=== PATIENT | male | born 1940 | race Caucasian/White ===

== ENCOUNTER 2018-05-11 11:47 | Emergency (ER) | payer MEDICARE, OTHER, SELFPAY ==
--- NOTE | 2018-05-11 11:49 | CT_ITS ---
STUDY: CT BRAIN WITHOUT CONTRAST REASON FOR EXAM: Male, 77 years old. History of intracranial bleed seen on the sinus CT scan. History of hypertension. RADIATION DOSAGE (If Supplied By Facility): CTDIvol = ( 44.99 ) mGy, DLP = ( 829.85 ) mGycm TECHNIQUE: Transaxial CT imaging of the brain was performed without administration of intravenous contrast material. Individualized dose optimization techniques were used for this CT. COMPARISON: None. FINDINGS: Normal soft tissue structures. Normal calvarium. There is mild cerebral atrophy with widening of the extra-axial spaces and ventricular dilatation. There is a 1.2 cm x 3.3 cm hematoma in the medial aspect of the left posterior occipital lobe. Minimal surrounding edema. No significant mass effect is seen. Normal basal ganglia and thalami. Normal brainstem. Normal cerebellum. There is no intracranial hemorrhage. There are no findings of an acute ischemic infarction. Normal visualized paranasal sinuses. CT/Brain/Head without Contrast IMPRESSION: 1.2 cm x 3.3 cm intracerebral hematoma in the posterior medial aspect of the left occipital lobe. Electronically Signed: Chas Barr MD at 12:29 EST , Service support ,
--- NOTE | 2018-05-11 11:49 | EKG12_ITS ---
Test Reason : NEURO Blood Pressure : / mmHG Vent. Rate : 061 BPM Atrial Rate : 061 BPM P-R Int : 178 ms QRS Dur : 108 ms QT Int : 418 ms P-R-T Axes : 045 054 045 degrees QTc Int : 420 ms Normal sinus rhythm Incomplete right bundle branch block Borderline ECG Confirmed by LAURO NIETO, LONNY ([id number]), city editor XOCHILT GREWAL ([id number]) on 05/13/2018 1:24:54 PM Referred By: VALENCIA Confirmed By:LONNY RESTREPO MD
[2018-05-11 11:53] VITALS: BP 160/62; PULSE 61; RESP 22; TEMP 36.6; O2SAT 92; BMI 39.4
--- NOTE | 2018-05-11 12:29 | ED.VISSUMM ---
- ER Visit Summary Date of Service: 05/11/18 Chief Complaint: Intracranial hemorrhage History of Present Illness: The patient is a 77 M with history of type 2 diabetes, hypertension and hypercholesterolemia had an outpatient CT of the sinuses for intermittent headache and presumed sinus problems. I was contacted by radiologist from [facility] that patient had an intracranial bleed he believes in the left parietal area. He states study is limited since the x-ray was a sinus film. He denies trouble with speech or swallowing. He denies paresthesia, anesthesia motor weakness. He denies cardiac respiratory symptoms. He denies nausea or vomiting. He is on no anticoagulant. Only antiplatelet medicine is aspirin. Physical Examination: Blood pressure 160/62, heart rate 61, respiratory 22, temperature 97.9 with a pulse ox of 92% on room air. BMI is 39.5. Pupils equal round reactive paradoxic muscle intact. Sclerae anicteric. There is no papilledema. TMs normal. Nares patent. Posterior pharynx without erythema XA. Uvula midline. Trachea midline. No carotid bruit. Heart is regular without murmur, gallop or rub. Lungs good auscultation. Abdomen soft nontender. He is alert and oriented x3. Motor is 5/5. Incisions intact. DTRs are 1-2+ upper lower extremity with no clonus or Babinski sign. Cranial 2 through 12 intact. Finger-nose to finger was performed adequately. Test Results: CT of the head reviewed by me and reveals an intracranial bleed left side occipital parietal area. It appears on 3 images axial view and 10 images coronal view. Emergency Department Course and Treatment: CBC, basic metabolic panel coags were obtained. CT of the head was ordered emergently. Treatment Plan: Patient and his prefer to stay as close as possible. [facility] was contacted since he is at [facility] patient. They have no beds. He requested [facility]. [facility] was contacted and there is no beds available and there is no beds potential available for greater than 24 hours. Will contact neurosurgeon at [facility] since there is a small bleed and related to hypertension in all likelihood since there is no history of trauma. [facility] was contacted. Patient was accepted by Dr. Cornelius. He is to be taken to the emergency department. Disposition: Transfer to appropriate facility with neurosurgical backup Impression: Left occipital parietal intracranial hemorrhage secondary to hypertension History of type 2 diabetes History of hypercholesterolemia This note was generated with [employer] dictation software. It may contain incorrect words, spelling, and punctuation that were not noted in review of the chart prior to signing ED Disposition - Plan for ED Patient: Referrals: Shayla Hoffmann NP-C [NON-STAFF] -
--- NOTE | 2018-05-11 12:34 | ED.DCSUM_ITS ---
- ER Visit Summary Date of Service: 05/11/18 Chief Complaint: Intracranial hemorrhage History of Present Illness: The patient is a 77 M with history of type 2 diabetes, hypertension and hypercholesterolemia had an outpatient CT of the sinuses for intermittent headache and presumed sinus problems. I was contacted by radiologist from [facility] that patient had an intracranial bleed he believes in the left parietal area. He states study is limited since the x-ray was a sinus film. He denies trouble with speech or swallowing. He denies paresthesia, anesthesia motor weakness. He denies cardiac respiratory symptoms. He denies nausea or vomiting. He is on no anticoagulant. Only antiplatelet medicine is aspirin. Physical Examination: Blood pressure 160/62, heart rate 61, respiratory 22, temperature 97.9 with a pulse ox of 92% on room air. BMI is 39.5. Pupils equal round reactive paradoxic muscle intact. Sclerae anicteric. There is no papilledema. TMs normal. Nares patent. Posterior pharynx without erythema XA. Uvula midline. Trachea midline. No carotid bruit. Heart is regular without murmur, gallop or rub. Lungs good auscultation. Abdomen soft nontender. He is alert and oriented x3. Motor is 5/5. Incisions intact. DTRs are 1-2+ upper lower extremity with no clonus or Babinski sign. Cranial 2 through 12 intact. Finger-nose to finger was performed adequately. Test Results: CT of the head reviewed by me and reveals an intracranial bleed left side occipital parietal area. It appears on 3 images axial view and 10 images coronal view. Emergency Department Course and Treatment: CBC, basic metabolic panel coags were obtained. CT of the head was ordered emergently. Treatment Plan: Patient and his prefer to stay as close as possible. [facility] was contacted since he is at [facility] patient. They have no beds. He requested [facility]. [facility] was contacted and there is no beds available and there is no beds potential available for greater than 24 hours. Will contact neurosurgeon at [facility] since there is a small bleed and related to hypertension in all likelihood since there is no history of trauma. [facility] was contacted. Patient was accepted by Dr. Cornelius. He is to be taken to the emergency department. Disposition: Transfer to appropriate facility with neurosurgical backup Impression: Left occipital parietal intracranial hemorrhage secondary to hypertension History of type 2 diabetes History of hypercholesterolemia This note was generated with [employer] dictation software. It may contain incorrect words, spelling, and punctuation that were not noted in review of the chart prior to signing ED Disposition - Plan for ED Patient: Referrals: Shayla Hoffmann NP-C [NON-STAFF] -
[2018-05-11 12:37] LABS: Absolute Lymphocyte Count 1.04 X10^3/ul (0.83-4.51); Basophil# 0.04 X10^3/uL; Basophil% 0.5 % (0-1); Eosinophil# 0.09 X10^3/uL; Eosinophils% 1.1 % (0-5); Hemoglobin 13.1 g/dl (13.0-16.5); Lymphocyte # 1.04 X10^3/ul (4.0); Lymphocyte % 13.2 % (19-41); Mean Corp Hgb Conc 32.8 g/gl (32-36); Mean Corpuscular Hgb 29.4 pg (27.0-32.0); Mean Corpuscular Volume 89.9 fL (80-94); Mean Platelet Vol. 10.1 fl (6.2-12.0); Monocyte# 0.73 X10^3/uL; Monocyte% 9.3 % (0-10); Neutrophil # 5.95 X10^3/uL (2.7-7.7); Neutrophil % 75.8 % (47-70); POSITIVE COUNT NO; POSITIVE DIFFERENTIAL NO; POSITIVE MORPHOLOGY NO; Platelet Count 221 K/mm3 (150-450); RBC Distribution Width CV 14.1 % (11.6-14.6); RBC Distribution Width SD 45.7 fl (35.1-43.9); Red Blood Count 4.45 M/mm3 (4.6-6.2); White Blood Count 7.9 K/mm3 (4.4-11.0)
[2018-05-11 12:44] LABS: Prothrombin Time (Protime)PT. 13.4 SECONDS (11.7-14.9)
[2018-05-11 12:45] LABS: Partial Thromboplast Time 32.2 Seconds (24.1-36.2)
[2018-05-11 12:53] LABS: Anion Gap 9 (5-15); BUN 19 mg/dL (7-18); BUN/Creat Ratio 18.4 RATIO (10-20); Calcium,Total 8.8 mg/dL (8.5-10.1); Chloride 104 mmol/L (98-107); Creatinine, Serum 1.03 mg/dL (0.70-1.30); EST Glomerular Filtration Rate 75 mL/min (>60); Est Glom Filt Rate - Afr Amer 90 mL/min (>60); Estimated Creatinine Clearance 59.03 ml/min; Glucose 163 mg/dL (74-106); Potassium 3.7 mmol/L (3.5-5.1); Sodium Level 141 mmol/L (136-145)
[2018-05-11 13:04] VITALS: BP 165/74; PULSE 60; RESP 27; O2SAT 95
[2018-05-11 14:39] VITALS: BP 173/90
--- NOTE | 2018-05-11 15:04 | CHAPLAIN ---
Type of Pastoral Visit _x__ Initial Visit ___ Follow-up Visit ___ On-call Visit ___ General Patient Visit ___ Spiritual Assessment ___ Family Conference ___ Bereavement ___ Rapid Response ___ Code Blue ___ Other (describe below) Pastoral Care Referral From _x__ Patient ___ Family _x__ Nurse ___ Physician ___ Wig Comber ___ Highway Commissioner ___ Other (describe below) Sacrament/Intervention _x__ Active listening ___ Anointing ___ Evangelical ___ Bereavement ___ Communion ___ Porsche exploration ___ _x__ Life review _x__ Prayer ___ Reconciliation ___ Sacrament of Sick _x__ Supportive presence ___ Wedding ___ Other (describe below) Pastoral Comments
== END 2018-05-11 14:38 | disposition short-term general hospital (02) ==
LOC: ED 12:42
PROVIDERS: Emergency Provider Emergency Medicine; Family Provider Family Medicine; PCP Family Medicine
DX: I62.9 Nontraumatic intracranial hemorrhage, unspecified (principal); I10 Essential (primary) hypertension; E11.9 Type 2 diabetes mellitus without complications; E78.00 Pure hypercholesterolemia, unspecified; Z85.46 Personal history of malignant neoplasm of prostate
CPT/HCPCS: 70450; 80048; 85025; 85610; 85730; 93005; 96374; 99285; A4216

== ENCOUNTER → 2019-04-04 16:33 | Outpatient (CLI) | payer MEDICARE, OTHER, SELFPAY ==
[2019-04-04 17:06] LABS: D-Dimer Quantitative (DVT/PE) 0.44 FEU/ug/m (0.27-0.49)
== END ==
PROVIDERS: Family Provider Family Medicine; PCP Family Medicine; Referring Provider Family Medicine; Visit Provider Family Medicine
DX: R06.02 Shortness of breath (principal)
CPT/HCPCS: 85379

== ENCOUNTER → 2019-11-01 20:00 | Outpatient (CLI) | payer MEDICARE, OTHER, SELFPAY | PROVIDERS: PCP Family Medicine; Referring Provider Family Medicine; Visit Provider Family Medicine | DX: G47.33 Obstructive sleep apnea (adult) (pediatric) (principal) | CPT/HCPCS: 95811 ==

== ENCOUNTER 2019-11-10 00:18 | Emergency (ER) | payer MEDICARE, OTHER, SELFPAY ==
[2019-11-10 00:22] VITALS: BP 135/58; PULSE 61; RESP 24; TEMP 36.7; O2SAT 89; BMI 45.3
--- NOTE | 2019-11-10 00:40 | ED.DCSUM_ITS ---
History of Present Illness Chief Complaint: GI Bleed Informant: Patient Narrative: he stated he had 3 episodes of active bleeding today. The first 1 was at 4 AM and then two in the afternoon and evening he noticed bright red blood per rectum. He has been constipated lately and having hard stool. He is unsure if he injured 1 of his internal hemorrhoids. He had an internal hemorrhoid surgery [address] Toussaint. He did not have any bleeding postoperative. He has had bleeding with hemorrhoids in the remote past. He stated he had 5 polyps removed as well. Denies any abdominal pain. He is not on blood thinners. He had upper GI scope per patient that was normal. Past Medical History - Allergies and Home Meds Allergies/Adverse Reactions: Allergies atorvastatin [From Lipitor] Adverse Reaction (Verified 11/10/19 00:47) muscle pain muscle pain pravastatin Adverse Reaction (Verified 11/10/19 00:47) muscle pain muscle pain simvastatin Adverse Reaction (Verified 11/10/19 00:47) Pain in joints muscle pain sitagliptin [From Januvia] Adverse Reaction (Verified 11/10/19 00:47) muscle aches muscle and join aches Primary Care Physician: Thony Ruiz MD [Primary Care Provider] - Prior records reviewed: Yes Past Medical History: - - Reviewed Surgical History: - - Reviewed Lives: With Family Smoking Status: Current every day smoker Alcohol: None Drugs: None Review of Systems General: Denies: Chills, Fever, Sweats Eyes: Denies: Visual changes - bilaterally, Diplopia ENT: Denies: Rhinorrhea, Sore throat Cardiovascular: Denies: Chest pain, Palpitations Respiratory: Denies: Dyspnea, Cough, Dyspnea on exertion Gastrointestinal: Reports: Hematochezia. Denies: Abdominal pain, Nausea, Vomiting, Diarrhea, Melena Genitourinary: Denies: Dysuria, Hematuria, Frequency Musculoskeletal: Denies: Back pain, Extremity Pain Skin: Denies: Rash, Wounds Neurological: Denies: Headache, Weakness, Numbness Physical Exam Vital Signs/Narrative: Vital Signs Temp Pulse Resp BP Pulse Ox 11/10/19 00:22 98.0 F 61 24 H 135/58 H 89 General: Well nourished, Well developed, No Acute Distress Head: Normocephalic, Atraumatic Eyes: Perrl, EOMI ENT: Moist mucous membranes, No rhinorrhea Neck: Supple, Nontender Cardiovascular: Regular rate, Regular rhythm, No murmurs Respiratory: No distress, CTA bilaterally, Chest nontender Abdomen: Soft, Nontender, Nondistended, Normal bowel sounds Rectal: Nontender, - - Has a scant amount of bright red blood on my finger on exam. I cannot appreciate any hemorrhoids externally or internally felt Back: Nontender, Normal Inspection Extremities: Nontender, No edema Skin: Normal color, No rash Neurological: Alert, Oriented x3, Cranial nerves II-XII grossly intact, Normal Strength, Normal Sensation Psychological: Normal affect, Normal Mood Diagnostic/Tx/Re-eval - Medical Decision Making Patient resting comfortably without complaint. Lab work obtained. Patient remains comfortable. Patient has a hemoglobin 11.1 down from 13.1 a year and a half ago. Creatinine is 1.5. Patient does not have any complaints at this time. He said no further GI bleeding. I suspect that he has some mild bleeding from his hemorrhoid surgery versus a polyp site. He is nontoxic. Discussed with on-call [facility]. She and I feel the patient can follow-up as an outpatient with Dr. Toussaint. Patient is in agreement with this. He will continue to keep his stool soft stool softeners ED Disposition - Plan for ED Patient: Disposition: Home or Assisted Living Diagnosis: Postoperative haemorrhage Instructions: ED Hematochezia Stable Referrals: Christopher Deshpande MD [STAFF PHYSICIAN] -
[2019-11-10 01:07] LABS: Absolute Lymphocyte Count 0.88 X10^3/uL (0.83-4.51); Absolute Neutrophil Count 5.6 X10^3/uL (2.0-7.7); Basophil# 0.03 X10^3/uL; Basophil% 0.4 % (0-1); Eosinophil# 0.21 X10^3/uL; Eosinophils% 2.8 % (0-5); Hematocrit 35.2 % (40-54); Hemoglobin 11.1 g/dL (13.0-16.5); Lymphocyte # 0.88 X10^3/ul (4.0); Lymphocyte % 11.6 % (19-41); Mean Corp Hgb Conc 31.5 g/dL (32-36); Mean Corpuscular Hgb 28.7 pg (27.0-32.0); Mean Platelet Vol. 10.6 fl (6.2-12.0); Monocyte# 0.87 X10^3/uL; Monocyte% 11.5 % (0-10); NRBC Flagged by Analyzer 0 % (0-5); Neutrophil # 5.56 X10^3/uL (2.7-7.7); Neutrophil % 73.3 % (47-70); Platelet Count 202 K/mm3 (150-450); RBC Distribution Width CV 13.2 % (11.6-14.6); RBC Distribution Width SD 43.4 fl (35.1-43.9); Red Blood Count 3.87 M/mm3 (4.6-6.2); White Blood Count 7.6 K/mm3 (4.4-11.0)
[2019-11-10 01:22] LABS: Anion Gap 3 (5-15); BUN 35 mg/dL (7-18); BUN/Creat Ratio 23.3 RATIO (10-20); Calcium,Total 8.7 mg/dL (8.5-10.1); Chloride 105 mmol/L (98-107); EST Glomerular Filtration Rate 48 mL/min (>60); Est Glom Filt Rate - Afr Amer 58 mL/min (>60); Estimated Creatinine Clearance 37.22 ml/min; Glucose 147 mg/dL (74-106); Potassium 4.3 mmol/L (3.5-5.1); Sodium Level 137 mmol/L (136-145)
[2019-11-10 01:28] LABS: International Normalized Ratio 1.1; Partial Thromboplast Time 32.4 Seconds (24.1-36.2); Prothrombin Time (Protime)PT. 13.3 SECONDS (11.7-14.9)
[2019-11-10 02:18] VITALS: BP 166/60; PULSE 64; RESP 28; O2SAT 94
== END 2019-11-10 02:25 | disposition home or self-care (01) ==
PROVIDERS: Emergency Provider Emergency Medicine; PCP Family Medicine
DX: K91.840 Postprocedural hemorrhage of a digestive system organ or structure following a digestive system procedure (principal); F17.200 Nicotine dependence, unspecified, uncomplicated
CPT/HCPCS: 80048; 85025; 85610; 85730; 99284; A4216

== ENCOUNTER 2019-12-15 14:53 | Emergency (ER) | payer MEDICARE, OTHER, SELFPAY ==
[2019-12-15 14:55] VITALS: BP 161/72; PULSE 61; RESP 16; TEMP 36.8; O2SAT 95; BMI 44.9
--- NOTE | 2019-12-15 15:22 | CT_ITS ---
STUDY: CT ABDOMEN AND PELVIS WITH CONTRAST REASON FOR EXAM: Male, 78 years old. DIFFUSE ABD PAIN, BLOATING RADIATION DOSAGE (If Supplied By Facility): CTDIvol = ( 23.55 ) mGy, DLP = ( 1295.39 ) mGycm TECHNIQUE: Transaxial images were obtained from the dome of the diaphragm to the symphysis pubis without oral contrast. Oral and amp; IV Gastrografin and amp; 100mL Isovue-300 was administered. Sagittal and coronal images were reconstructed. Individualized dose optimization techniques were used for this CT. COMPARISON: None. FINDINGS: There is diffuse interstitial thickening of the lower lobes.. Heart is enlarged. The liver is enlarged and diffusely fatty infiltrated without mass or bile duct dilatation. Distended gallbladder without calcified stones or pericholecystic edema possibly physiologic. If concern for gallbladder disease ultrasound recommended. Normal spleen. Normal pancreas. Normal bilateral adrenal glands. No evidence for renal obstruction or ureteral calculus. Tiny right renal cyst.. Normal visualized stomach. Normal small intestine. Minor diverticular changes of the descending colon without evidence for acute diverticulitis.. Nonvisualization of the appendix which may be on the basis of prior appendectomy. Atherosclerotic changes of the aorta without evidence for aneurysm. Normal inferior vena cava. Normal retroperitoneum. Incompletely distended thick-walled bladder likely of no significance Small fat-containing periumbilical hernia.. Small bilateral fat-containing inguinal hernias Lumbar spine demonstrates moderate spondylosis. CT/Abdomen/Pelvis WITH Contrast IMPRESSION: Distended gallbladder without stones or pericholecystic edema possibly physiologic however if concern for gallbladder disease ultrasound recommended. Minor diverticular changes of the descending colon without evidence for acute diverticulitis. No evidence for small bowel obstruction. Other findings as above Electronically Signed: Shay Sue MD at 17:49 EDT , Service support ,
--- NOTE | 2019-12-15 15:22 | EKG12_ITS ---
Test Reason : Blood Pressure : / mmHG Vent. Rate : 064 BPM Atrial Rate : 064 BPM P-R Int : 220 ms QRS Dur : 110 ms QT Int : 424 ms P-R-T Axes : 040 047 059 degrees QTc Int : 437 ms Sinus rhythm with 1st degree A-V block Otherwise normal ECG Confirmed by CORINNE NIETO, TOSHA ([id number]), script editor AMARILIS DYE ([id number]) on 12/22/2019 12:50:38 P M Referred By: BENIGNO Confirmed By:MANISH SUN MD
--- NOTE | 2019-12-15 15:24 | ED.DCSUM_ITS ---
History of Present Illness Chief Complaint: Abd Pain Informant: Patient Onset: Today Context: Gradual Onset Timing: Waxes and wanes Current Severity: Moderate Maximum Severity: Severe Narrative: Patient presents secondary to generalized abdominal pain. He states pain started around 10 AM this morning. He had had some diarrhea when he first got up this morning but was able to tolerate breakfast without difficulty. Around 10 AM he started getting generalized abdominal pain. He denies vomiting or any further episodes of diarrhea. states he does have a history of stomach problems. He recently had an EGD and colonoscopy. He had some polyps removed and internal hemorrhoids treated. - Past Medical History (1) Hypertension Status: Chronic (2) High cholesterol Status: Chronic (3) COPD (chronic obstructive pulmonary disease) Status: Chronic (4) Diabetes Status: Chronic (5) TIA (transient ischemic attack) Status: Chronic (6) Prostate cancer Status: Chronic Past Medical History - Allergies and Home Meds Allergies/Adverse Reactions: Allergies atorvastatin [From Lipitor] Adverse Reaction (Verified 12/15/19 14:54) muscle pain muscle pain pravastatin Adverse Reaction (Verified 12/15/19 14:54) muscle pain muscle pain simvastatin Adverse Reaction (Verified 12/15/19 14:54) Pain in joints muscle pain sitagliptin [From Januvia] Adverse Reaction (Verified 12/15/19 14:54) muscle aches muscle and join aches Primary Care Physician: Thony Ruiz MD [Primary Care Provider] - Prior records reviewed: Yes Surgical History: - - Reviewed Lives: Spouse/ Significant Other Smoking Status: Former smoker Review of Systems General: Denies: Chills, Fever Eyes: Denies: Visual changes - bilaterally ENT: Denies: Bilateral ear pain Cardiovascular: Denies: Chest pain Respiratory: Denies: Dyspnea, Cough Gastrointestinal: Reports: Abdominal pain, Diarrhea. Denies: Vomiting Genitourinary: Reports: Frequency. Denies: Dysuria Musculoskeletal: Denies: Swelling, Extremity Pain Hematologic: Denies: Easy bruising, Easy bleeding Allergy: Denies: Uticaria Physical Exam Vital Signs/Narrative: Vital Signs Temp Pulse Resp BP Pulse Ox 12/15/19 14:55 98.2 F 61 16 161/72 H 95 Inital Vital Signs reviewed: Yes General: Well nourished, Well developed Head: Normocephalic ENT: Moist mucous membranes Neck: Supple Cardiovascular: Irregular Respiratory: No distress, CTA bilaterally Abdomen: Soft, Normal bowel sounds, Tender - Mild diffuse tenderness palpation.. Negative for: Guarding, Rebound tenderness Extremities: Nontender Skin: Normal color Neurological: Alert, Oriented x3 Psychological: Normal affect Diagnostic/Tx/Re-eval Impressions Abdomen/Pelvis CT 12/15/19 15:22 IMPRESSION: Distended gallbladder without stones or pericholecystic edema possibly physiologic however if concern for gallbladder disease ultrasound recommended. Minor diverticular changes of the descending colon without evidence for acute diverticulitis. No evidence for small bowel obstruction. Other findings as above Electronically Signed: Shay Sue MD at 17:49 EDT , Service support , 12/15/19 15:22 Abdomen/Pelvis WITH Contrast [CT] Stat Laboratory Results 12/15/19 12/15/19 12/15/19 11:20 11:20 16:00 WBC 9.0 RBC 3.56 L Hgb 10.0 L Hct 31.8 L MCV 89.3 MCH 28.1 MCHC 31.4 L RDW Std Deviation 42.8 RDW Coeff of [place] 13.1 Plt Count 251 MPV 10.9 Immature Gran % (Auto) 0.400 Neut % (Auto) 83.2 H Lymph % (Auto) 7.3 L [place] % (Auto) 7.9 Eos % (Auto) 1.0 Baso % (Auto) 0.2 Absolute Neuts (auto) 7.5 Absolute Lymphs (auto) 0.65 L Nucleated RBC % 0 Sodium 136 Potassium 4.3 Chloride 104 Carbon Dioxide 26.0 Anion Gap 6 BUN 24 H Creatinine 1.31 H Estim Creat Clear Calc 42.61 Est GFR (MDRD) Af Amer 68 Est GFR (MDRD) Non-Af 56 L BUN/Creatinine Ratio 18.3 Glucose 114 H Lactic Acid 0.6 Calcium 8.8 Total Bilirubin 0.20 Direct Bilirubin 0.10 AST 14 L ALT 18 Alkaline Phosphatase 39 L Total Protein 6.8 Albumin 3.4 Globulin 3.4 Lipase 77 Urine Color Urine Clarity Urine pH Ur Specific [place] Urine Protein Urine Glucose (UA) Urine Ketones Urine Occult Blood Urine Nitrite Urine Bilirubin Urine Urobilinogen Ur Leukocyte Esterase Urine RBC Urine WBC Ur Squamous Epith Cells Urine Bacteria Urine Mucus 12/15/19 17:10 WBC RBC Hgb Hct MCV MCH MCHC RDW Std Deviation RDW Coeff of [place] Plt Count MPV Immature Gran % (Auto) Neut % (Auto) Lymph % (Auto) [place] % (Auto) Eos % (Auto) Baso % (Auto) Absolute Neuts (auto) Absolute Lymphs (auto) Nucleated RBC % Sodium Potassium Chloride Carbon Dioxide Anion Gap BUN Creatinine Estim Creat Clear Calc Est GFR (MDRD) Af Amer Est GFR (MDRD) Non-Af BUN/Creatinine Ratio Glucose Lactic Acid Calcium Total Bilirubin Direct Bilirubin AST ALT Alkaline Phosphatase Total Protein Albumin Globulin Lipase Urine Color Yellow Urine Clarity Sl. Cloudy Urine pH 7.0 Ur Specific [place] 1.010 Urine Protein 100 H Urine Glucose (UA) Normal Urine Ketones Negative Urine Occult Blood Negative Urine Nitrite Negative Urine Bilirubin Negative Urine Urobilinogen Normal Ur Leukocyte Esterase Negative Urine RBC 0 SEEN Urine WBC 0 SEEN Ur Squamous Epith Cells 0-5 SEEN Urine Bacteria 0 SEEN Urine Mucus 0 SEEN - EKG Initial EKG Interpretation: Sinus Rhythm - Sinus at 64 with a first-degree AV block. No acute ischemia. - Medical Decision Making Patient was given morphine and Zofran for pain on arrival. Blood work and CT scan are largely unremarkable. There is concern for his gallbladder being distended and ultrasound of the gallbladder has been recommended. This was discussed with the patient and at bedside. Patient be sent for ultrasound and this report will be signed out to oncoming physician for final disposition. ED Disposition - Plan for ED Patient: Referrals: Thony Ruiz MD [Primary Care Provider] -
[2019-12-15] MEDS: Morphine 4 MG/ML Syringe IV ×2 (15:40→19:55)
[2019-12-15] MEDS: Ondansetron 4 MG/2 ML Vial IV (15:40)
[2019-12-15 16:14] VITALS: PULSE 66; RESP 22; O2SAT 94
[2019-12-15] MEDS: 0.9% Normal Saline 1,000 ML 150 ML IV (16:14)
[2019-12-15 16:20] LABS: Absolute Lymphocyte Count 0.65 X10^3/uL (0.83-4.51); Absolute Neutrophil Count 7.5 X10^3/uL (2.0-7.7); Basophil# 0.02 X10^3/uL; Basophil% 0.2 % (0-1); Eosinophil# 0.09 X10^3/uL; Hematocrit 31.8 % (40-54); Lymphocyte # 0.65 X10^3/ul (4.0); Lymphocyte % 7.3 % (19-41); Mean Corp Hgb Conc 31.4 g/dL (32-36); Mean Corpuscular Hgb 28.1 pg (27.0-32.0); Mean Corpuscular Volume 89.3 fL (80-94); Mean Platelet Vol. 10.9 fl (6.2-12.0); Monocyte# 0.71 X10^3/uL; Monocyte% 7.9 % (0-10); NRBC Flagged by Analyzer 0 % (0-5); Neutrophil # 7.45 X10^3/uL (2.7-7.7); Neutrophil % 83.2 % (47-70); Platelet Count 251 K/mm3 (150-450); RBC Distribution Width CV 13.1 % (11.6-14.6); RBC Distribution Width SD 42.8 fl (35.1-43.9); Red Blood Count 3.56 M/mm3 (4.6-6.2)
[2019-12-15 16:29] LABS: AST(SGOT) 14 U/L (15-37); Alanine Aminotransfer ALT/SGPT 18 U/L (16-61); Albumin, Serum 3.4 g/dL (3.2-5.0); Alkaline Phosphatase 39 U/L (45-117); Anion Gap 6 (5-15); BUN 24 mg/dL (7-18); BUN/Creat Ratio 18.3 RATIO (10-20); Calcium,Total 8.8 mg/dL (8.5-10.1); Chloride 104 mmol/L (98-107); Creatinine, Serum 1.31 mg/dL (0.70-1.30); EST Glomerular Filtration Rate 56 mL/min (>60); Est Glom Filt Rate - Afr Amer 68 mL/min (>60); Estimated Creatinine Clearance 42.61 ml/min; Globulin 3.4 g/dL (2.2-4.2); Glucose 114 mg/dL (74-106); Lipase 77 U/L (73-393); Potassium 4.3 mmol/L (3.5-5.1); Protein, Total 6.8 g/dL (6.4-8.2); Sodium Level 136 mmol/L (136-145)
[2019-12-15 16:35] LABS: Lactic Acid 0.6 mmol/L (0.4-1.9)
[2019-12-15 17:18] LABS: Bacteria 0 SEEN /hpf (None Seen); Mucous, Urine 0 SEEN /hpf (<or=2+); Red Blood Cells-Urine 0 SEEN /hpf (0-5); White Blood Cells 0 SEEN /hpf (0-5)
[2019-12-15 17:21] LABS: Color, Urine Yellow (Yellow); Glucose, Dipstick Normal (Normal); Ketone-Dipstick Negative (Negative); Leukocyte Esterase-Dipstick Negative /ul (Negative); Nitrite-Dipstick Negative (Negative); Occult Blood-Urine Negative /ul (Negative); Protein-Dipstick 100 mg/dl (Negative); Urine Bilirubin Dipstick Negative (Negative); Urine Clarity Sl. Cloudy (Clear); Urine Urobilinogen Normal (Normal)
[2019-12-15 17:49] LABS: Squamous Epithelial Cells - UA 0-5 SEEN /hpf (0-5)
--- NOTE | 2019-12-15 18:21 | US_ITS ---
STUDY: ABDOMINAL ULTRASOUND - RIGHT UPPER QUADRANT REASON FOR VISIT: Male, 78 years old ABD PAIN TECHNIQUE: Ultrasound evaluation of the right upper quadrant was performed with real-time and static trent-scale imaging. TECHNICAL QUALITY: Adequate. COMPARISON: CT of the abdomen 12/15/2019 FINDINGS: Liver: The liver measures 23.1 cm. There is diffusely increased echogenicity of the liver. The bile ducts are within normal limits. There is hepatic color flow. The direction of portal flow is hepatopetal. There is no demonstrated mass lesion. Gallbladder: Normal distended gallbladder. The gallbladder wall measures 3 mm. There is a negative sonographic Valverde''s sign. There is no pericholecystic fluid. There are no gallstones. Common Bile Duct (C.B.D.): The common bile duct measures 3 mm. Pancreas: Not visualized due to bowel gas producing artifact.. Right Kidney: Normal size of the right kidney. The right kidney measures 12.4 x 6.2 x 7.3 cm. Normal renal cortex. The right cortex measures 2.3 cm. There is a cyst measuring 2 x 2 x 1.5 cm. There is no right hydronephrosis. US/Abdomen Limited IMPRESSION: Enlarged fatty infiltrated liver. No evidence for gallstones or acute cholecystitis Electronically Signed: Shay Sue MD at 19:22 EDT , Service support ,
[2019-12-15 19:12] VITALS: BP 163/54; PULSE 62; RESP 18; TEMP 36.6; O2SAT 94
== END 2019-12-15 20:05 | disposition home or self-care (01) ==
PROVIDERS: Emergency Provider Emergency Medicine; PCP Family Medicine
DX: R10.84 Generalized abdominal pain (principal); E11.9 Type 2 diabetes mellitus without complications; J44.9 Chronic obstructive pulmonary disease, unspecified; I10 Essential (primary) hypertension; E78.00 Pure hypercholesterolemia, unspecified; Z87.891 Personal history of nicotine dependence; Z86.73 Personal history of transient ischemic attack (TIA), and cerebral infarction without residual deficits; Z85.46 Personal history of malignant neoplasm of prostate
CPT/HCPCS: 74177; 76705; 80048; 80076; 81001; 83605; 83690; 85025; 93005; 96361; 96374; 96375; 96376; 99285; J7030; Q9967; A4216; J2405

== ENCOUNTER 2019-12-16 06:42 | Emergency (ER) | payer MEDICARE, OTHER, SELFPAY ==
[2019-12-15 14:55] VITALS: BMI 44.9
[2019-12-16 06:46] VITALS: BP 195/62; PULSE 75; RESP 19; TEMP 36.4; O2SAT 95; BMI 45.1
--- NOTE | 2019-12-16 06:59 | EKG12_ITS ---
Test Reason : STOMACH PAIN Blood Pressure : / mmHG Vent. Rate : 071 BPM Atrial Rate : 071 BPM P-R Int : 198 ms QRS Dur : 114 ms QT Int : 448 ms P-R-T Axes : -17 044 051 degrees QTc Int : 486 ms Sinus rhythm with Premature atrial complexes Incomplete right bundle branch block Prolonged QT Abnormal ECG Confirmed by VERO NIETO, TATE ([id number]), news video editor AMARILIS DYE ([id number]) on 12/21/2019 8:45:02 AM Referred By: LY Confirmed By:TATE PHAM MD
--- NOTE | 2019-12-16 07:03 | ED.VISSUMM ---
- ER Visit Summary Date of Service: 12/16/19 Chief Complaint: Abdominal pain History of Present Illness: The patient is a [address] Camarena. He reports that he has diffuse abdominal pain that began yesterday suddenly. It is a sharp pain is 10 out of 10 in severity. It is worsened by movement relieved by remaining still. He denies any nausea, vomiting, or diarrhea. His last bowel movement was yesterday morning. He denies any melena or hematochezia. No dysuria, frequency, or hematuria. Patient reports that he had a colonoscopy 3 to [address] Toussaint. He reports that he has a chronic cough for years that is unchanged. He denies any chest pain or shortness of breath. No fever or chills. He does complain of generalized weakness. Physical Examination: Vitals: Stable. Afebrile. General: Well-nourished and well-developed. Head: Normocephalic atraumatic. Neck: Supple, no lymphadenopathy. No JVD. Nontender. Cardiovascular: Regular rate and rhythm. No murmurs. Respiratory: No respiratory distress. Clear to auscultation bilaterally. Abdominal: Soft, moderate diffuse tenderness to palpation, distended, hypoactive bowel sounds. No guarding, rebound, or peritoneal signs. Back: Nontender. Extremities: Nontender, no edema. Skin: Normal color, no rash. Neurologic: Alert and oriented ?3. Cranial nerves II through XII are intact. Normal strength and sensation. Psych: Normal affect. Test Results: CBC shows a white count of 16.6 with 93 segmented neutrophils and 2 lymphocytes. H&H is 10.0 and 31.8. Chem-7 shows a sodium 133, glucose 276, BUN of 19. LFTs show an alk phos of 44 and AST of 10. Troponin is negative. EKG is sinus at 71 with PACs. The only change from yesterday is that his QTC is 486 today and was 437 yesterday. Lactic acid is 1.9. Emergency Department Course and Treatment: I reviewed the patient's visit yesterday. His CT with PO/IV contrast showed a distended gallbladder and the appendix was not visualized. Right upper quadrant ultrasound was negative. CBC showed an H&H of 10.0 and 31.8, segment neutrophils 83, lymphocytes of 7. CMP shows a BUN of 24, creatinine 1.31, glucose 114, AST of 14, alk phos of 39. Lactic acid was normal. UA was negative. Patient had an IV placed. He was given morphine and Zofran IV. He continued to complain of pain. He was given Dilaudid IV and Zosyn IV. Treatment Plan: Patient was discussed with Dr. Ambrosio. Patient was discussed with [facility] will be transferred the emergency department there. Disposition: Transferred in serious condition. Impression: 1. Mesenteric ischemia. 2. Critical care time 33 minutes. This note was generated with [employer] dictation software. It may contain incorrect words, spelling, and punctuation that were not noted in review of the chart prior to signing ED Disposition - Plan for ED Patient: Disposition: [facility] Referrals: Thony Ruiz MD [Primary Care Provider] -
[2019-12-16 07:05] LABS: Absolute Lymphocyte Count 0.34 X10^3/uL (0.83-4.51); Absolute Neutrophil Count 15.4 X10^3/uL (2.0-7.7); Basophil# 0.02 X10^3/uL; Basophil% 0.1 % (0-1); Differential Indicated SCAN CRITERIA MET; Hematocrit 31.8 % (40-54); Lymphocyte # 0.34 X10^3/ul (4.0); Mean Corp Hgb Conc 31.4 g/dL (32-36); Mean Corpuscular Hgb 28.2 pg (27.0-32.0); Mean Corpuscular Volume 89.6 fL (80-94); Mean Platelet Vol. 10.2 fl (6.2-12.0); Monocyte# 0.68 X10^3/uL; Monocyte% 4.1 % (0-10); NRBC Flagged by Analyzer 0 % (0-5); Neutrophil # 15.44 X10^3/uL (2.7-7.7); Neutrophil % 93.1 % (47-70); POSITIVE DIFFERENTIAL YES; Platelet Count 248 K/mm3 (150-450); RBC Distribution Width CV 12.9 % (11.6-14.6); RBC Distribution Width SD 42.5 fl (35.1-43.9); Red Blood Count 3.55 M/mm3 (4.6-6.2); White Blood Count 16.6 K/mm3 (4.4-11.0)
[2019-12-16] MEDS: 0.9% Normal Saline 1,000 ML 125 ML IV (07:10)
[2019-12-16] MEDS: Morphine 4 MG/ML Syringe IV ×2 (07:11→07:51)
[2019-12-16] MEDS: Ondansetron 4 MG/2 ML Vial IV (07:11)
[2019-12-16 07:19] LABS: ALB/GLOB Ratio 0.9 RATIO (0.9-2.4); AST(SGOT) 10 U/L (15-37); Alanine Aminotransfer ALT/SGPT 20 U/L (16-61); Albumin, Serum 3.5 g/dL (3.2-5.0); Alkaline Phosphatase 44 U/L (45-117); Anion Gap 6 (5-15); BUN 19 mg/dL (7-18); BUN/Creat Ratio 14.7 RATIO (10-20); Calcium,Total 8.6 mg/dL (8.5-10.1); Chloride 101 mmol/L (98-107); Creatinine, Serum 1.29 mg/dL (0.70-1.30); EST Glomerular Filtration Rate 57 mL/min (>60); Est Glom Filt Rate - Afr Amer 69 mL/min (>60); Estimated Creatinine Clearance 43.28 ml/min; Globulin 3.7 g/dL (2.2-4.2); Glucose 276 mg/dL (74-106); Lipase 47 U/L (73-393); Potassium 3.9 mmol/L (3.5-5.1); Protein, Total 7.2 g/dL (6.4-8.2); Sodium Level 133 mmol/L (136-145)
[2019-12-16 07:56] LABS: Lactic Acid 1.9 mmol/L (0.4-1.9)
[2019-12-16 08:53] VITALS: PULSE 71; RESP 20; O2SAT 93
--- NOTE | 2019-12-16 08:55 | CT_ITS ---
STUDY: CT ABDOMEN AND PELVIS WITHOUT CONTRAST REASON FOR EXAM: Male, 78 years old. ABDOMINAL PAIN X FEW DAYS. WAS SEEN YESTERDAY FOR SAME. RADIATION DOSAGE (If Supplied By Facility): CTDIvol = ( 23.71 ) mGy, DLP = ( 1232.35 ) mGycm TECHNIQUE: Transaxial images were obtained from the dome of the diaphragm to the symphysis pubis without oral contrast, and without intravenous contrast. Sagittal and coronal images were reconstructed. Individualized dose optimization techniques were used for this CT. COMPARISON: Comparison is made with prior examination of 12/15/2019. FINDINGS: Stable increased markings at the lung bases suggestive of scarring. Coronary artery calcification. There now is evidence of air within the portal venous branches within the liver. Bilateral ischemia should be ruled out. Mildly distended gallbladder. Low-level densities are seen within the gallbladder lumen suggestive of sludge and/or small gallstones. Normal spleen. Normal pancreas. Normal bilateral adrenal glands. 1.7 cm cyst in the lateral aspect of the right kidney. Normal left kidney. Normal visualized stomach. Normal small intestine. There are scattered colonic diverticula consistent with diverticulosis. The appendix is visualized and appears normal. There is diffuse atherosclerotic calcification of the abdominal aorta and its major visceral branches including the superior mesenteric artery and celiac artery, without a demonstrated aneurysm. Dense calcific plaques are seen at the origin of the celiac and superior mesenteric arteries. Normal inferior vena cava. There is borderline retroperitoneal lymphadenopathy with enlarged nodes no greater than 10mm in the short axis diameter. Small caliber urinary bladder. There is a small umbilical hernia containing fat. Small bilateral inguinal hernias containing fat. There are diffuse degenerative changes of the visualized lumbar spine. CT/Abdomen/Pel W ORAL Cont Only IMPRESSION: Air within the portal venous system. Bowel ischemia should be ruled out. Extensive atherosclerotic changes of the abdominal aorta and major visceral branches including the celiac artery and superior mesenteric artery. The remainder the examination is unchanged. N.B. : The above information has been verbally conveyed by Chas Barr to Alexei Pink MD, on 12/16/2019 09:23:43 (ET). Electronically Signed: Chas Barr, at 9:24 EDT , Service support ,
[2019-12-16] MEDS: HYDROmorphone 1 MG/ML Syringe IV (09:18)
[2019-12-16 09:21] VITALS: BP 163/51
[2019-12-16 10:39] VITALS: BP 174/57; PULSE 79; RESP 25; O2SAT 94
== END 2019-12-16 10:43 | disposition short-term general hospital (02) ==
PROVIDERS: Emergency Provider Emergency Medicine; PCP Family Medicine
DX: K55.059 Acute (reversible) ischemia of intestine, part and extent unspecified (principal); E11.9 Type 2 diabetes mellitus without complications; I10 Essential (primary) hypertension; E78.00 Pure hypercholesterolemia, unspecified; Z86.73 Personal history of transient ischemic attack (TIA), and cerebral infarction without residual deficits; Z79.84 Long term (current) use of oral hypoglycemic drugs; Z79.899 Other long term (current) drug therapy
CPT/HCPCS: 74176; 80053; 83605; 83690; 84484; 85025; 87635; 93005; 96365; 96375; 96376; 99285; J7030; A4216; J2405; U0003